=== PATIENT | male | born 1970 | race Caucasian/White ===

== ENCOUNTER 2017-06-14 10:45 | Emergency (ER) | payer OTHER ==
[~2017-06-14] VITALS: Ht 180.3 cm; Wt 104.5 kg
[~2017-06-14 10:45] MED LIST: ACET-784 PO; THERA-FLU PO; [UNRECOGNIZED DRUG - REMARK]
[2017-06-14 11:22] VITALS: BP 175/116
[2017-06-14] MEDS ORDERED: PERTUSS(ACELL),DIPH,TET VAC/PF 0.5 ML VIAL IM ONE (12:00)
== END 2017-06-14 12:15 | disposition home or self-care (01) ==
LOC: EMS 10:47
DX: L85.3 Xerosis cutis (principal); I10 Essential (primary) hypertension; F12.90 Cannabis use, unspecified, uncomplicated; Z88.5 Allergy status to narcotic agent; Z88.6 Allergy status to analgesic agent
CPT/HCPCS: 90471; 90715; 99283